=== PATIENT | male | born 1955 | race Caucasian/White ===

== ENCOUNTER → 2021-01-08 | Outpatient (CLI) | payer MEDICARE ==
--- NOTE | 2021-01-08 10:55 | KCIC ---
EXAM: Right ankle, 3 views. HISTORY: Pain. Swelling COMPARISON: None. FINDINGS: 3 views of the right ankle are obtained. There is no fracture, dislocation or subluxation. The ankle mortise is intact. There is no osteochondral lesion. There is a small plantar spur. There a re vascular calcifications. There is lateral soft tissue swelling. IMPRESSION: 1. Lateral soft tissue swelling. 2. No acute osseous finding. Electronically signed by: Mahogany Childs MD (01/08/2021 10:53 AM) [id number]
== END ==
LOC: KCIC 09:57
PROVIDERS: ATTEND Family Medicine
DX: M79.89 Other specified soft tissue disorders (principal); M25.571 Pain in right ankle and joints of right foot
CPT/HCPCS: 73610